=== PATIENT | male | born 1990 | race Caucasian/White ===

== ENCOUNTER 2019-06-26 23:11 | Emergency (ER) | payer OTHER ==
[~2019-06-26] VITALS: Ht 170.2 cm; Wt 61.9 kg
[2019-06-26 23:36] VITALS: BP 138/83
--- NOTE | 2019-06-26 23:45 | NUR ---
PT AMBULATED BACK TO LOBBY WITH STEADY GAIT. AWAITING AVAILABLE ROOM.
--- NOTE | 2019-06-26 23:53 | NUR ---
PT AMBULATED TO ER BED 12
[2019-06-27] MEDS ORDERED: KETOROLAC 60 MG/2 ML VIAL IM ONE (00:10)
--- NOTE | 2019-06-27 00:13 | NUR ---
28/M PRESENTS TO ED WITH FAMILY/FRIEND, C/O L UPPER TEETH PAIN, X2 WEEKS. ULCERATION NOTED ON L UPPER TEETH/GUMS. PT AWAKE AND ALERT, SKIN NORMAL WARM AND DRY, RR EVEN AND UNLABORED. DENTIST APPT ON SATURDAY. DENIES MED HX OR RX. OTC MOTRIN IN AFTERNOON WITHOUT RELIEF.
[2019-06-27 00:46] VITALS: BP 126/70
--- NOTE | 2019-06-27 00:46 | NUR ---
Patient discharged with v/s stable. Written and verbal after care instructions given and explained. Patient alert, oriented and verbalized understanding of instructions. Ambulatory with steady gait. All questions addressed prior to discharge. ID band removed. Patient advised to follow up with PMD. Rx of CLINDAMYCIN, ULTRAM given. Patient educated on indication of medication including possible reaction and side effects. Opportunity to ask questions provided and answered.
== END 2019-06-27 00:46 | disposition home or self-care (01) ==
LOC: MED 23:11
DX: K04.7 Periapical abscess without sinus (principal)
CPT/HCPCS: 96372; 99283; J1885